=== PATIENT | female | born 1980 | race Caucasian/White ===

== ENCOUNTER 2018-12-12 17:27 | Emergency (ER) | payer MEDICAID ==
--- NOTE | 2018-12-12 19:24 | EDM.PDOC ---
ED HPI GENERAL MEDICAL PROBLEM - General Chief Complaint: Headache Stated Complaint: DIZZY HEADACHES SUGAR 217 Time Seen by Provider: 12/12/18 19:24 Source of Information: Reports: Patient History Limitations: Reports: No Limitations - History of Present Illness INITIAL COMMENTS - FREE TEXT/NARRATIVE: Headache since Tuesday, Hx migraines, On toprimate x 4 months, seemed better at first now getting worse, nausea and chills today. Sensitive to light and sound. Checked blood sugar earlier today and greater than 200. Neuro appointment scheduled tomorrow. Headache Pain Score (Numeric/FACES): 9 - Related Data Allergies Allergy/AdvReac Type Severity Reaction Status Date / Time ibuprofen Allergy Rash Verified 12/12/18 18:00 Penicillins Allergy Rash Verified 12/12/18 18:00 Sulfa (Sulfonamide Allergy Rash Verified 12/12/18 18:00 Antibiotics) Home Meds: Home Meds Insulin Aspart [NovoLOG] 0 unit SQ ASDIRECTED 12/12/18 [History] Insulin Glarg,Human.Rec.Analog [Lantus] 68 unit SUBCUT ASDIRECTED 12/12/18 [ History] Lisinopril 0 mg PO ASDIRECTED 12/12/18 [History] Prazosin [Minpress] 0 mg PO ASDIRECTED 12/12/18 [History] QUEtiapine [SEROquel] 0 mg PO ASDIRECTED 12/12/18 [History] Topiramate [Topamax] 50 mg PO BID 12/12/18 [History] Past Medical History - Past Health History Medical/Surgical History: Denies Medical/Surgical History HEENT History: Reports: None Cardiovascular History: Reports: High Cholesterol, Hypertension Respiratory History: Reports: Asthma Gastrointestinal History: Reports: None Genitourinary History: Reports: None STORES CLERK History: Reports: , Other (See Below) Other STORES CLERK History: tubal ligation Musculoskeletal History: Reports: None Neurological History: Reports: Migraines Psychiatric History: Reports: Depression Endocrine/Metabolic History: Reports: Diabetes, Type I Hematologic History: Reports: None Immunologic History: Reports: None Oncologic (Cancer) History: Reports: None Dermatologic History: Reports: None - Infectious Disease History Infectious Disease History: Reports: None - Past Surgical History Head Surgeries/Procedures: Reports: None GI Surgical History: Reports: Appendectomy Musculoskeletal Surgical History: Reports: Carpal Tunnel Social & Family History - Family History Family Medical History: Noncontributory - Tobacco Use Smoking Status *Q: Never Smoker - Caffeine Use Caffeine Use: Reports: Tea - Recreational Drug Use Recreational Drug Use: No ED ROS GENERAL - Review of Systems Constitutional: Reports: Chills, Malaise, Decreased Appetite HEENT: Denies: Sinus Problem, Throat Pain Respiratory: Denies: Shortness of Breath, Wheezing, Cough Cardiovascular: Reports: Lightheadedness. Denies: Chest Pain Endocrine: Reports: High Glucose GI/Abdominal: Reports: Nausea. Denies: Vomiting Musculoskeletal: Reports: Neck Pain (chronic tension), Muscle Stiffness. Denies : Shoulder Pain, Arm Pain Skin: Reports: No Symptoms Psychiatric: Reports: No Symptoms Course - Vital Signs Last Recorded V/S: Last Vital Signs Temp 98.1 F 12/12/18 17:54 Pulse 90 12/12/18 21:44 Resp 16 12/12/18 21:44 BP 110/55 L 12/12/18 21:44 Pulse Ox 92 L 12/12/18 21:44 - Orders/Labs/Meds Orders: Active Orders 24 hr Category Date Time Status Blood Glucose Check, Bedside [RC] ONETIME Care 12/12/18 18:03 Active CULTURE URINE [RM] Stat Lab 12/12/18 19:39 Received Labs: Laboratory Tests 12/12/18 12/12/18 12/12/18 Range/Units 18:05 19:34 19:34 WBC 9.4 (5.0-10.0) 10^3/uL RBC 5.00 (4.2-5.4) 10^6/uL Hgb 14.5 (12.0-16.0) g/dL Hct 42.2 (37.0-47.0) % MCV 84.4 (80-100) fL MCH 29.0 (27.0-34.0) pg MCHC 34.4 (33.0-35.0) g/dL Plt Count 295 (150-450) 10^3/uL Neut % (Auto) 57.5 (42.2-75.2) % Lymph % (Auto) 32.6 (20.5-50.1) % Howard % (Auto) 7.2 (2-8) % Eos % (Auto) 2.2 (1.0-3.0) % Baso % (Auto) 0.5 (0.0-1.0) % Sodium 136 (135-145) mmol/L Potassium 3.7 (3.6-5.0) mmol/L Chloride 101 (101-111) mmol/L Carbon Dioxide 25.0 (21.0-31.0) mmol/L Anion Gap 13.7 BUN 9 (7-18) mg/dL Creatinine 0.6 (0.6-1.3) mg/dL Est Cr Clr Drug Dosing 97.81 mL/min Estimated GFR (MDRD) > 60 BUN/Creatinine Ratio 15.00 Glucose 142 H (74-105) mg/dL POC Glucose 157 H (70-105) mg/dl Calcium 8.7 (8.4-10.2) mg/dl Total Bilirubin 0.8 (0.2-1.0) mg/dL AST 41 (10-42) IU/L ALT 56 (10-60) IU/L Alkaline Phosphatase 63 (42-121) IU/L Total Protein 7.5 (6.7-8.2) g/dl Albumin 4.0 (3.2-5.5) g/dl Globulin 3.5 Albumin/Globulin Ratio 1.14 Urine Color (YELLOW) Urine Appearance (CLEAR) Urine pH (5.0-9.0) Ur Specific [place] (1.005-1.030) Urine Protein (NEGATIVE) Urine Glucose (UA) (NEGATIVE) Urine Ketones (NEGATIVE) Urine Occult Blood (NEGATIVE) Urine Nitrite (NEGATIVE) Urine Bilirubin (NEGATIVE) Urine Urobilinogen (0.2-1.0) mg/dL Ur Leukocyte Esterase (NEGATIVE) Urine RBC /HPF Urine WBC (0-5/HPF) /HPF Ur Epithelial Cells (NOT SEEN) /HPF Amorphous Sediment (NOT SEEN) /HPF Urine Bacteria (0-FEW/HPF) /HPF Urine Mucus (NOT SEEN) /LPF Urine HCG, Qual Urine Opiates Screen (NEGATIVE) Ur Oxycodone Screen (NEGATIVE) Urine Methadone Screen (NEGATIVE) Ur Barbiturates Screen (NEGATIVE) U Tricyclic Antidepress (NEGATIVE) Ur Phencyclidine Scrn (NEGATIVE) Ur Amphetamine Screen (NEGATIVE) U Methamphetamines Scrn (NEGATIVE) Urine MDMA Screen (NEGATIVE) U Benzodiazepines Scrn (NEGATIVE) Urine Cocaine Screen (NEGATIVE) U Marijuana (THC) Screen (NEGATIVE) 12/12/18 12/12/1819 Range/Units 19:39 19:39 19:39 WBC (5.0-10.0) 10^3/uL RBC (4.2-5.4) 10^6/uL Hgb (12.0-16.0) g/dL Hct (37.0-47.0) % MCV (80-100) fL MCH (27.0-34.0) pg MCHC (33.0-35.0) g/dL Plt Count (150-450) 10^3/uL Neut % (Auto) (42.2-75.2) % Lymph % (Auto) (20.5-50.1) % Howard % (Auto) (2-8) % Eos % (Auto) (1.0-3.0) % Baso % (Auto) (0.0-1.0) % Sodium (135-145) mmol/L Potassium (3.6-5.0) mmol/L Chloride (101-111) mmol/L Carbon Dioxide (21.0-31.0) mmol/L Anion Gap BUN (7-18) mg/dL Creatinine (0.6-1.3) mg/dL Est Cr Clr Drug Dosing mL/min Estimated GFR (MDRD) BUN/Creatinine Ratio Glucose (74-105) mg/dL POC Glucose (70-105) mg/dl Calcium (8.4-10.2) mg/dl Total Bilirubin (0.2-1.0) mg/dL AST (10-42) IU/L ALT (10-60) IU/L Alkaline Phosphatase (42-121) IU/L Total Protein (6.7-8.2) g/dl Albumin (3.2-5.5) g/dl Globulin Albumin/Globulin Ratio Urine Color Yellow (YELLOW) Urine Appearance Slightly cloudy (CLEAR) Urine pH 6.0 (5.0-9.0) Ur Specific [place] >= 1.030 (1.005-1.030) Urine Protein Negative (NEGATIVE) Urine Glucose (UA) 100 H (NEGATIVE) Urine Ketones Negative (NEGATIVE) Urine Occult Blood Small H (NEGATIVE) Urine Nitrite Negative (NEGATIVE) Urine Bilirubin Negative (NEGATIVE) Urine Urobilinogen 1.0 (0.2-1.0) mg/dL Ur Leukocyte Esterase Small H (NEGATIVE) Urine RBC 5-10 H /HPF Urine WBC 20-30 H (0-5/HPF) /HPF Ur Epithelial Cells Moderate H (NOT SEEN) /HPF Amorphous Sediment Few (NOT SEEN) /HPF Urine Bacteria Moderate H (0-FEW/HPF) /HPF Urine Mucus Few H (NOT SEEN) /LPF Urine HCG, Qual Negative Urine Opiates Screen Negative (NEGATIVE) Ur Oxycodone Screen Negative (NEGATIVE) Urine Methadone Screen Negative (NEGATIVE) Ur Barbiturates Screen Negative (NEGATIVE) U Tricyclic Antidepress Negative (NEGATIVE) Ur Phencyclidine Scrn Negative (NEGATIVE) Ur Amphetamine Screen Negative (NEGATIVE) U Methamphetamines Scrn Negative (NEGATIVE) Urine MDMA Screen Negative (NEGATIVE) U Benzodiazepines Scrn Negative (NEGATIVE) Urine Cocaine Screen Negative (NEGATIVE) U Marijuana (THC) Screen Negative (NEGATIVE) Meds: Medications Discontinued Medications Generic Name Dose Route Start Last Admin Trade Name Freq PRN Reason Stop Dose Admin Butorphanol Tartrate 2 mg 12/12/18 19:49 12/12/18 20:01 Stadol IVPUSH 12/12/18 19:50 2 mg ONETIME ONE Administration Hydromorphone HCl 1 mg 12/12/18 21:12 12/12/18 21:21 Dilaudid IVPUSH 12/12/18 21:13 1 mg ONETIME ONE Administration Sodium Chloride 1,000 mls @ 999 mls/hr 12/12/18 19:47 12/12/18 20:01 Normal Saline IV 12/12/18 20:47 999 mls/hr .BOLUS ONE Administration Ceftriaxone Sodium 1,000 mg/ 100 mls @ 200 mls/hr 12/12/18 21:14 12/12/18 21: 27 Sodium Chloride IV 12/12/18 21:43 200 mls/hr ONETIME ONE Administration Ondansetron HCl 4 mg 12/12/18 19:47 12/12/18 20:01 Zofran IV 12/12/18 19:48 4 mg ONETIME ONE Administration Departure - Departure Time of Disposition: 22:06 Disposition: Home, Self-Care 01 Condition: Good Clinical Impression: Migraine, Hyperglycemia UTI (urinary tract infection) Qualifiers: Urinary tract infection type: acute pyelonephritis Qualified Code(s): N10 - Acute pyelonephritis - Discharge Information *PRESCRIPTION DRUG MONITORING PROGRAM REVIEWED*: No *COPY OF PRESCRIPTION DRUG MONITORING REPORT IN PATIENT BARI: No Instructions: Urinary Tract Infection, Adult, [id number], Migraine Headache, [id number] Forms: ED Department Discharge Additional Instructions: Increase fluid intake follow in am with neurolgist home medications as directed Cipro 500mg one twice daily for 5 days recheck ua in clinic on tuesday - My Orders Last 24 Hours: My Active Orders 12/12/18 19:39 CULTURE URINE [RM] Stat - Assessment/Plan Last 24 Hours: My Active Orders 12/12/18 19:39 CULTURE URINE [RM] Stat
[2018-12-12] MEDS ORDERED: Ondansetron 4 MG/2 ML SDV IV ONE (19:47)
[2018-12-12] MEDS ORDERED: Sodium Chloride 0.9% 1,000 ML IV ONE (19:47)
[2018-12-12] MEDS ORDERED: Butorphanol 2 MG/ML SDV IVPUSH ONE (19:49)
[2018-12-12 19:58] LABS: ANION GAP 13.7; CHLORIDE,CL 101 mmol/L (101-111); SODIUM,NA 136 mmol/L (135-145)
[2018-12-12] MEDS ORDERED: HYDROmorphone 1 MG/ML Syringe IVPUSH ONE (21:12)
== END 2018-12-12 22:18 | disposition home or self-care (01) ==
LOC: DL.ED 17:27
DX: G43.909 Migraine, unspecified, not intractable, without status migrainosus (principal); E10.65 Type 1 diabetes mellitus with hyperglycemia; N10 Acute pyelonephritis; I10 Essential (primary) hypertension; J45.909 Unspecified asthma, uncomplicated; Z88.0 Allergy status to penicillin; Z88.6 Allergy status to analgesic agent; Z88.2 Allergy status to sulfonamides; Z79.899 Other long term (current) drug therapy; Z79.4 Long term (current) use of insulin
CPT/HCPCS: 36415; 80053; 80305; 81001; 81025; 82962; 85025; 87086; 96361; 96365; 96375; 99284; J0595; J0696; J1170; J2405; J7030; J7050